=== PATIENT | male | born 1970 | race Caucasian/White ===

== ENCOUNTER 2020-02-07 11:19 | Emergency (ER) | payer MEDICAID, OTHER ==
[~2020-02-07] VITALS: Ht 180.3 cm; Wt 114.0 kg
[~2020-02-07 11:19] MED LIST: ASPI-630 PO; ATOR40TA59 PO; CYCL-331 PO; LISI1TAB37 PO; MELO15TA23 PO; POTA10TA12 PO; flexeril
--- NOTE | 2020-02-07 11:44 | PHYS DOC ---
Past History Past Medical History: Hypertension Past Surgical History: Other Smoking: Cigarettes Alcohol Use: None Drug Use: None General Adult EDM: Chief Complaint: HYPERTENSION HPI: HPI: History obtained from the patient. Patient is a 49-year-old male with a history of hypertension, COPD who presents with a chief complaint of lightheadedness, dizziness, nausea. Patient states after he arrived home after going to [facility] he began feeling somewhat lightheaded. He states he also felt the room was spinning temporarily. He also noted some associated nausea. He states he checked his blood pressure noted a systolic blood pressure of 160. He states he waited 30 minutes rechecked it and noted a systolic blood pressure 170. He spoke with his primary care physician, rechecked his blood pressure third time noted to be 185. He was instructed report to the emergency department. States he does take diltiazem and lisinopril daily. He states he takes it at night however. Denies any history of coronary artery disease or invasive cardiac testing. Denies any history of [place]. Denies any chest pain currently. States he did temporarily have left shoulder pain for a few seconds that resolved spont aneously while in the waiting room. Denies any new shortness of breath. Does use oxygen in the evenings. States he can get follow-up with his primary care physician tomorrow or the following day. States he smokes 1/2 pack/day. Denies any drug use. Denies history of blood clot. Denies swelling in legs or lungs. Denies fevers or cough. Denies any exposure to coronavirus that he knows of. Denies any recent travel. Denies any exertional chest pain at baseline. Review of Systems: Review of Systems: Constitutional: Denies fever or chills Eyes: Denies change in visual acuity HENT: Denies nasal congestion or sore throat Respiratory: Denies cough or shortness of breath Cardiovascular: Positive for lightheadedness GI: Positive for nausea : Denies dysuria Musculoskeletal: Denies back pain or joint pain Integument: Denies rash Neurologic: Denies headache, focal weakness or sensory changes Endocrine: Denies polyuria or polydipsia Lymphatic: Denies swollen glands Psychiatric: Denies depression or anxiety Heart Score: HEART Score for Chest Pain: HEART Score for Chest Pain Response (Comments) Value History Slighlty/Non-Suspicious 0 ECG Normal 0 Age >45 - < 65 1 Risk Factors 1 or 2 Risk Factors 1 Troponin < Normal Limit 0 Total 2 Risk Factors: Risk Factors: DM, Current or recent (<one month) smoker, HTN, HLP, family history of CAD, obesity. Risk Scores: Score 0 - 3: 2.5% MACE over next 6 weeks - Discharge Home Score 4 - 6: 20.3% MACE over next 6 weeks - Admit for Clinical Observation Score 7 - 10: 72.7% MACE over next 6 weeks - Early Invasive Strategies Allergies: Allergies: Allergies Coded Allergies Type Severity Reaction Last Updated Verified No Known Drug Allergies 09/26/13 No Physical Exam: PE: Constitutional: Well developed, well nourished, no acute distress, non-toxic appearance. [] HENT: Normocephalic, atraumatic, bilateral external ears normal, oropharynx moist, no oral exudates, nose normal. [] Eyes: PERRLA, EOMI, conjunctiva normal, no discharge. [] Neck: Normal range of motion, no tenderness, supple, no stridor. [] Cardiovascular: Tachycardic, rhythm, no murmur [] Lungs & Thorax: Bilateral breath sounds clear to auscultation [] Abdomen: soft, no tenderness, no masses, no pulsatile masses. [] Skin: Warm, dry, no erythema, no rash. [] Back: No tenderness, no CVA tenderness. [] Extremities: No tenderness, no cyanosis, no clubbing, ROM intact, no edema. [] Neurologic: Alert and oriented X 3, normal motor function, normal sensory function, no focal deficits noted. [] Psychologic: Affect normal, judgement normal, mood normal. [] Current Patient Data: Labs: Laboratory Tests Test 02/07/20 12:05 White Blood Count 10.3 x10^3/uL Red Blood Count 6.06 x10^6/uL Hemoglobin 17.3 g/dL Hematocrit 52.8 % Mean Corpuscular Volume 87 fL Mean Corpuscular Hemoglobin 29 pg Mean Corpuscular Hemoglobin Concent 33 g/dL Red Cell Distribution Width 14.8 % Platelet Count 214 x10^3/uL Neutrophils (%) (Auto) 69 % Lymphocytes (%) (Auto) 22 % Monocytes (%) (Auto) 7 % Eosinophils (%) (Auto) 2 % Basophils (%) (Auto) 1 % Neutrophils # (Auto) 7.1 x10^3uL Lymphocytes # (Auto) 2.2 x10^3/uL Monocytes # (Auto) 0.7 x10^3/uL Eosinophils # (Auto) 0.2 x10^3/uL Basophils # (Auto) 0.1 x10^3/uL D-Dimer ([place]) 0.19 mg/L Sodium Level 137 mmol/L Potassium Level 3.4 mmol/L Chloride Level 101 mmol/L Carbon Dioxide Level 26 mmol/L Anion Gap 10 Blood Urea Nitrogen 9 mg/dL Creatinine 0.9 mg/dL Estimated GFR (Cockcroft-Gault) 89.7 Glucose Level 117 mg/dL Calcium Level 9.6 mg/dL Troponin I Quantitative < 0.017 ng/mL IM-Eua-O-Type Natriuretic Peptide 44 pg/mL Vital Signs: Laboratory Tests Test 02/07/20 12:05 White Blood Count 10.3 x10^3/uL Red Blood Count 6.06 x10^6/uL Hemoglobin 17.3 g/dL Hematocrit 52.8 % Mean Corpuscular Volume 87 fL Mean Corpuscular Hemoglobin 29 pg Mean Corpuscular Hemoglobin Concent 33 g/dL Red Cell Distribution Width 14.8 % Platelet Count 214 x10^3/uL Neutrophils (%) (Auto) 69 % Lymphocytes (%) (Auto) 22 % Monocytes (%) (Auto) 7 % Eosinophils (%) (Auto) 2 % Basophils (%) (Auto) 1 % Neutrophils # (Auto) 7.1 x10^3uL Lymphocytes # (Auto) 2.2 x10^3/uL Monocytes # (Auto) 0.7 x10^3/uL Eosinophils # (Auto) 0.2 x10^3/uL Basophils # (Auto) 0.1 x10^3/uL D-Dimer ([place]a) 0.19 mg/L Sodium Level 137 mmol/L Potassium Level 3.4 mmol/L Chloride Level 101 mmol/L Carbon Dioxide Level 26 mmol/L Anion Gap 10 Blood Urea Nitrogen 9 mg/dL Creatinine 0.9 mg/dL Estimated GFR (Cockcroft-Gault) 89.7 Glucose Level 117 mg/dL Calcium Level 9.6 mg/dL Troponin I Quantitative < 0.017 ng/mL WH-Dls-Y-Type Natriuretic Peptide 44 pg/mL EKG: EKG: [] EKG consistent with sinus tachycardia. Left axis noted. Intervals normal. No acute ischemic change appreciated. Sinus arrhythmia noted. No acute ST segment changes appreciated. Radiology/Procedures: Radiology/Procedures: [address] [address] IMAGING REPORT Signed PATIENT: JOSEPH BASILIO ACCOUNT: [id number] : 1970 LOCATION: ER AGE: 49 SEX: M EXAM STATUS: REG ER ORD. PHYSICIAN: LLOYD ARCHIBALD DO REASON: lightheaded PROCEDURE: CHEST AP ONLY CHEST AP ONLY 02/07/2020 11:35 AM INDICATION: Lightheaded COMPARISON: 12/02/2014 TECHNIQUE: Portable frontal view of the chest is provided. FINDINGS: The cardiomediastinal silhouette is within normal limits. Mild perihilar interstitial changes are noted, progressed since the prior examination. Left chest wall cardiac monitoring device is noted. There are no significant pleural effusions. There is no pulmonary vascular congestion. No pneumothorax. No suspicious osseous abnormality. Spinal epidural leads are noted. IMPRESSION: Increased perihilar interstitial changes may represent interstitial pneumonitis versus developing interstitial edema. Electronically signed by: Dav Botello MD (02/07/2020 11:52 AM) [facility] DICTATED AND SIGNED BY: DAV BOTELLO MD DATE: 02/07/20 115 CC: GINNY GILL MD; LLOYD ARCHIBALD DO ~ [] Course & Med Decision Making: Course & Med Decision Making Pertinent Labs and Imaging studies reviewed. (See chart for details) [] Patient is a well-appearing 49-year-old male who presents with chief complaint of elevated blood pressure associated with lightheadedness. Denies any chest pain or new shortness of breath. EKG without acute ischemic changes. D-dimer was obtained given his mild tachycardia and this was negative. Overall I do estimate him to be a low risk Wells criteria patient therefore CT PE study will be deferred. Troponin undetectable. Chest x-ray does show some hypervascular markings. Could be interstitial edema versus viral pneumonia pattern. COVID swab obtained and pending. No signs of focal bacterial infection. He has a normal oxygenation on room air and remains chest pain-free. I did discuss results of labs and imaging great detail with the patient. Overall I do have low suspicion for anginal equivalent however I did offer hospitalization for further work-up. Patient is declining stating follow-up with his primary care physician tomorrow. Encouraged him to take his antihypertensive medications as prescribed. Strict return precautions were discussed and understood. He is stable for discharge home. Dragon Disclaimer: Dragon Disclaimer: This electronic medical record was generated, in whole or in part, using a voice recognition dictation system. Departure Departure: Impression: Primary Impression: Elevated blood pressure reading Additional Impressions: Lightheadedness Nausea Disposition: 01 DC HOME SELF CARE/HOMELESS Condition: STABLE Referrals: GINNY GILL MD (PCP) Patient Instructions: Hypertension Additional Instructions: Please follow-up with your primary care physician tomorrow. LLOYD ARCHIBALD DO Feb 07, 2020 11:44
--- NOTE | 2020-02-07 11:55 | RAD ---
CHEST AP ONLY 02/07/2020 11:35 AM INDICATION: Lightheaded COMPARISON: 12/02/2014 TECHNIQUE: Portable frontal view of the chest is provided. FINDINGS: The cardiomediastinal silhouette is within normal limits. Mild perihilar interstitial changes are noted, progressed since the prior examination. Left chest wall cardiac monitoring device is noted. There are no significant pleural effusions. There is no pulmonary vascular congestion. No pneumothorax. No suspicious osseous abnormality. Spinal epidural leads are noted. IMPRESSION: Increased perihilar interstitial changes may represent interstitial pneumonitis versus developing interstitial edema. Electronically signed by: Margaret Figueroa MD (02/07/2020 11:52 AM) [facility]
--- NOTE | 2020-02-07 12:24 | EKG ---
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
[2020-02-07 12:28] LABS: BASO # 0.1 x10^3/uL (0.0-0.2); BASO % 1 % (0-3); EOS # 0.2 x10^3/uL (0.0-0.7); EOS % 2 % (0-3); HEMATOCRIT 52.8 % (39.0-53.0); HEMOGLOBIN 17.3 g/dL (13.0-17.5); LYMPH # 2.2 x10^3/uL (1.0-4.8); LYMPH % 22 % (24-48); MEAN CORPUSCULAR HEMOGLOBIN 29 pg (25-35); MEAN CORPUSCULAR HGB CONC 33 g/dL (31-37); MEAN CORPUSCULAR VOLUME 87 fL (79-100); MONO # 0.7 x10^3/uL (0.0-1.1); MONO % 7 % (0-9); NEUT # 7.1 x10^3uL (1.8-7.7); NEUT % 69 % (31-73); PLATELET COUNT 214 x10^3/uL (140-400); RED BLOOD COUNT 6.06 x10^6/uL (4.30-5.70); RED CELL DISTRIBUTION WIDTH 14.8 % (11.5-14.5); WHITE BLOOD COUNT 10.3 x10^3/uL (4.0-11.0)
[2020-02-07 12:48] LABS: CALCIUM 9.6 mg/dL (8.5-10.1); CREATININE 0.9 mg/dL (0.7-1.3); GFR 89.7; POTASSIUM 3.4 mmol/L (3.5-5.1)
[2020-02-07 13:17] VITALS: BP 169/102
== END 2020-02-07 13:40 | disposition home or self-care (01) ==
LOC: ER 11:19
DX: I10 Essential (primary) hypertension (principal); R42 Dizziness and giddiness; R11.0 Nausea; F17.210 Nicotine dependence, cigarettes, uncomplicated; J44.9 Chronic obstructive pulmonary disease, unspecified; Z20.828 Contact with and (suspected) exposure to other viral communicable diseases
CPT/HCPCS: 36415; 71045; 80048; 83880; 84484; 85025; 85379; 93005; 99285; U0003

== ENCOUNTER → 2020-07-15 | Outpatient (CLI) | payer MEDICAID ==
--- NOTE | 2020-07-15 16:05 | RAD ---
CT HEAD WITHOUT CONTRAST 07/15/2020 2:05 PM Indication: Reason: R SIDED FACIAL WEAKNESS/NUMBNESS X 4 WEEKS / Spl. Instructions: / History: Comparison: None Procedure: Multidetector CT imaging of the head was performed without the administration of contrast. Findings: There is no evidence of acute intracranial hemorrhage. There is no evidence of acute territ orial infarction. Please note that CT is limited for evaluation of acute ischemia. No mass effect or midline shift is identified . The ventricles and basilar cisterns have an appropriate appearance. No abnormal extra-axial fluid collections are seen. No acute osseous changes are identified. Impression: No evidence of acute intracranial abnormality CT DOSING PQRS STATEMENT: One or more of the following individualized dose reduction techniques were utilized for this examinat ion: 1. Automated exposure control 2. Adjustment of the mA and/or kV according to patient size 3. Use of iterative reconstruction technique Electronically signed by: Artur Shook MD (07/15/2020 4:03 PM) [id number]
== END ==
LOC: CT 13:54
PROVIDERS: ATTEND Family Medicine
DX: R53.1 Weakness (principal)
CPT/HCPCS: 70450

== ENCOUNTER 2021-08-03 09:29 | Emergency (ER) | payer MEDICAID ==
[~2021-08-03] VITALS: Ht 180.3 cm; Wt 126.6 kg
[~2021-08-03 09:29] MED LIST changes: -CYCL-331 PO; +CYCL10TA19 PO
--- NOTE | 2021-08-03 09:40 | PHYS DOC ---
Past History Past Medical History: No Pertinent History Past Surgical History: No Surgical History Smoking: Cigarettes Alcohol Use: None Drug Use: None General Adult HPI: HPI: Patient is a 51-year-old male who presents here with report of chest pain, which began this morning. He reports midsternal left-sided chest pain. He describes sharp pain. The pain lasts seconds or minutes at a time. He denies associated dyspnea, pleuritic pain, cough, hemoptysis. Denies dizziness or diaphoresis. Denies abdominal pain or nausea or vomiting. He has no pain at present. He denies leg pain or swelling. No recent travel, surgery, hospitalization. He has experienced similar chest pain symptoms intermittently over the years. He does admit to some anxiety issues, which she has had previously. He reports that he had brief episodes of tingling in all of his digits of both hands. This is now resolved as well. No pain radiating to his back or flank. No syncope or near syncope. No exertional pain. The patient alludes to having some sort of heart issue related to an infection, this all occurred 15 or 16 years ago, he cannot recall any details of this, he does not know what hospital he was treated at, he does not know the nature of what ever infection he had was, I did specifically ask about endocarditis or myocarditis, and he reports that he does not know. Review of Systems: Review of Systems: Constitutional: Denies fever or chills HENT: Denies nasal congestion or sore throat Respiratory: Denies cough or shortness of breath Cardiovascular: Chest pain. No peripheral edema. No syncope or palpitations. GI: Denies abdominal pain, nausea, vomiting Musculoskeletal: Denies back pain or joint pain Integument: Denies rash Neurologic: Denies headache, focal weakness or sensory changes, denies syncope, denies dizziness Endocrine: Denies polyuria or polydipsia Lymphatic: Denies swollen glands Psychiatric: Anxiety Allergies: Allergies: Allergies Coded Allergies Type Severity Reaction Last Updated Verified No Known Drug Allergies 09/26/13 No Physical Exam: PE: Constitutional: Well developed, well nourished, no acute distress, non-toxic appearance. Mildly anxious. HENT: Normocephalic, atraumatic Eyes: PERRL, EOMI, conjunctiva normal, no discharge. [] Neck: Normal range of motion, no tenderness, supple, no stridor. Trachea is midline. No JVD. Cardiovascular:Heart rate regular rhythm, 2 radial and +2 posterior tibial pulses bilaterally. Lungs & Thorax: Lungs are clear to auscultation bilaterally without rales, rhonchi or wheezes. Equal chest rise. No cyanosis. No distress. Abdomen: Abdomen is soft, nondistended, nontender to palpation. No palpable masses organomegaly. No CVA tenderness. No palpable pulsatile mass. Skin: Warm, dry, no erythema, no rash. No diaphoresis. Back: No tenderness, no CVA tenderness. [] Extremities: No tenderness, no cyanosis, no clubbing, ROM intact, no edema. No calf tenderness. Neurologic: Alert and oriented X 3, normal motor function, normal sensory function, no focal deficits noted. Ambulatory with a steady gait. Psychologic: Mildly anxious, cooperative and pleasant. EKG: EKG: EKG is interpreted at 1005 Rhythm is sinus tachycardia Rate is 108 bpm [place] is left artifact No STEMI Radiology/Procedures: Radiology/Procedures: IMAGING REPORT Signed PATIENT: JOSEPH BASILIO ACCOUNT: [id number] : 1970 LOCATION: ER AGE: 51 SEX: M EXAM STATUS: REG ER ORD. PHYSICIAN: KIZZY NASCIMENTO DO REASON: chest pain PROCEDURE: PORTABLE CHEST 1V Exam Date: 08/03/2021 9:50 AM XR CHEST 1V Indication: Reason: chest pain / Spl. Instructions: / History: . Comparison: February 07, 2020 FINDINGS/ IMPRESSION: Mild bibasilar subsegmental atelectasis and/or scarring is noted. The cardiac silhouette and pulmonary vasculature are within normal limits. There is no focal consolidation, pleural effusion or pneumothorax. Electronically signed by: Bj Manning MD (08/03/2021 10:03 AM) [facility] DICTATED AND SIGNED BY: BJ MANNING MD DATE: 08/03/21 1001 CC: KIZZY NASCIMENTO DO; GINNY GILL MD ~ Heart Score: C/O Chest Pain: Yes HEART Score for Chest Pain: HEART Score for Chest Pain Response (Comments) Value History Moderately Suspicious 1 ECG Nonspecific Repolarizatio 1 Age >45 - < 65 1 Risk Factors 1 or 2 Risk Factors 1 Troponin < Normal Limit 0 Total 4 Risk Factors: Risk Factors: DM, Current or recent (<one month) smoker, HTN, HLP, family history of CAD, obesity. Risk Scores: Score 0 - 3: 2.5% MACE over next 6 weeks - Discharge Home Score 4 - 6: 20.3% MACE over next 6 weeks - Admit for Clinical Observation Score 7 - 10: 72.7% MACE over next 6 weeks - Early Invasive Strategies Course & Med Decision Making: Course & Med Decision Making Pertinent Labs and Imaging studies reviewed. (See chart for details) The patient reports no further pain while in the ED. He does admit that being in the ER makes him anxious, he is anxiously awaiting discharge. I had to convince him to stay for second troponin. He did wait for this. No indication of acute coronary syndrome. His mild tachycardia has resolved. I have discussed all the findings, differential diagnosis and plan of care with the patient. I recommend he follow-up with a primary care physician as well as outpatient cardiology services. He is given outpatient cardiology information. I recommend smoking cessation. Return precautions are given. He verbalizes understanding. Olivia Disclaimer: Olivia Disclaimer: This electronic medical record was generated, in whole or in part, using a voice recognition dictation system. Departure Departure: Impression: Primary Impression: Chest pain Qualified Codes: R07.9 - Chest pain, unspecified Disposition: HOME / SELF CARE / HOMELESS Condition: STABLE Referrals: GINNY GILL MD (PCP) CLAUDIA CARRASQUILLO MD Patient Instructions: Chest Pain (Nonspecific) Additional Instructions: Please return to the ER for more severe chest pain, severe shortness of breath, coughing up blood, temperature of 100.4 or higher, weakness, passing out, or any other concerns. Please follow-up with your primary care physician. I strongly recommend you also see outpatient cardiology services as well. KIZZY NASCIMENTO DO Aug 03, 2021 09:40
--- NOTE | 2021-08-03 10:06 | RAD ---
Exam Date: 08/03/2021 9:50 AM XR CHEST 1V Indication: Reason: chest pain / Spl. Instructions: / History: . Comparison: February 07, 2020 FINDINGS/ IMPRESSION: Mild bibasilar subsegmental atelectasis and/or scarring is noted. The cardiac silhouette and pulmonary vasculature are within normal limits. There is no focal consolidation, pleural effusion or pneumothorax. Electronically signed by: Antonio Manning MD (08/03/2021 10:03 AM) [facility]
[2021-08-03 10:31] LABS: BASO # 0.1 x10^3/uL (0.0-0.2); BASO % 1 % (0-3); EOS # 0.2 x10^3/uL (0.0-0.7); EOS % 2 % (0-3); HEMATOCRIT 52.8 % (39.0-53.0); HEMOGLOBIN 17.6 g/dL (13.0-17.5); LYMPH # 2.1 x10^3/uL (1.0-4.8); LYMPH % 19 % (24-48); MEAN CORPUSCULAR HEMOGLOBIN 29 pg (25-35); MEAN CORPUSCULAR HGB CONC 33 g/dL (31-37); MEAN CORPUSCULAR VOLUME 87 fL (79-100); MONO # 0.9 x10^3/uL (0.0-1.1); MONO % 8 % (0-9); NEUT # 8.2 x10^3uL (1.8-7.7); NEUT % 71 % (31-73); PLATELET COUNT 214 x10^3/uL (140-400); RED BLOOD COUNT 6.08 x10^6/uL (4.30-5.70); RED CELL DISTRIBUTION WIDTH 15.3 % (11.5-14.5); WHITE BLOOD COUNT 11.5 x10^3/uL (4.0-11.0)
[2021-08-03 10:41] LABS: CALCIUM 9.3 mg/dL (8.5-10.1); CREATININE 0.9 mg/dL (0.7-1.3); POTASSIUM 3.4 mmol/L (3.5-5.1)
[2021-08-03 10:54] LABS: ALBUMIN 3.3 g/dL (3.4-5.0); MAGNESIUM 1.6 mg/dL (1.8-2.4); TOTAL BILIRUBIN 0.5 mg/dL (0.2-1.0); TOTAL PROTEIN 6.5 g/dL (6.4-8.2)
[2021-08-03 11:22] LABS: INFLUENZA A PATIENT NEGATIVE (NEGATIVE); INFLUENZA B PATIENT NEGATIVE (NEGATIVE)
[2021-08-03 11:35] LABS: BACTERIA,URINE 0 /HPF (0-FEW); CLARITY,URINE CLEAR; COLOR,URINE YELLOW; GLUCOSE,URINE NEG (NEG); NITRITE,URINE NEG (NEG); SQUAMOUS EPITHELIAL CELL,UR MOD /LPF; UROBILINOGEN,URINE 0.2 mg/dL (0.2 mg/dL)
[2021-08-03 13:59] VITALS: BP 132/77
--- NOTE | 2021-08-04 06:41 | EKG ---
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
== END 2021-08-03 13:47 | disposition home or self-care (01) ==
LOC: ER 09:29
DX: R07.89 Other chest pain (principal); F41.9 Anxiety disorder, unspecified; F17.210 Nicotine dependence, cigarettes, uncomplicated; Z20.822 Contact with and (suspected) exposure to COVID-19
CPT/HCPCS: 36415; 71045; 80053; 81001; 83690; 83735; 83880; 84484; 85025; 87428; 93005; 99285

== ENCOUNTER 2021-09-21 11:17 | Emergency (ER) | payer MEDICAID ==
[~2021-09-21] VITALS: Ht 180.3 cm; Wt 127.0 kg
--- NOTE | 2021-09-21 12:10 | PHYS DOC ---
Past History Past Medical History: No Pertinent History Additional Past Medical Histor: CHronic back pain/nerve damage Past Surgical History: Lumbar Laminectomy Additional Past Surgical Histo: SPINAL CORD STIMULATOR, LOOP RECORDER Smoking: Cigarettes Alcohol Use: None Drug Use: None Social History Narrative: THC gummies for back pain General Adult EDM: Chief Complaint: CHEST PAIN HPI: HPI: Patient is a 51-year-old male coming in for left-sided chest pain that he describes as dull with occasional sharp twinges. Patient states that he had a little bit of a dull ache when he went to bed last night but says he woke up at 3 AM with worsening pain, patient attributed to his anxiety and went back to sleep. Says it will come again around 830 or 9 AM. Patient states is a 6 out of 10 now. Patient is a history of anxiety and has had multiple recent stressors in the home. Patient has a history of "heart attack due to a bacterial infection" and does not have any stents. He also has some nausea, no vomiting. Denies diaphoresis, lightheadedness Review of Systems: Review of Systems: All other systems within normal limits except for as noted in the HPI Allergies: Allergies: Allergies Coded Allergies Type Severity Reaction Last Updated Verified bupropion Allergy Unknown 09/21/21 Yes Physical Exam: PE: Constitutional: Well developed, well nourished, no acute distress, non-toxic [place] earance. [] HENT: Normocephalic, atraumatic, bilateral external ears normal, nose normal. [] Eyes: PERRLA, conjunctiva normal, no discharge. [] Neck: No rigidity, supple, no stridor. [] Cardiovascular: Tachycardia, regular rhythm, brisk cap refill [] Lungs & Thorax: Non labored symmetric respirations, no tachypnea or respiratory distress. Lungs clear [] Abdomen: Soft, nondistended. Skin: Warm, dry, no erythema, no rash. [] Back: Unremarkable Extremities: No deformities, range of motion grossly intact, no lower extremity edema [] Neurologic: Alert and oriented X 3, no focal deficits noted. [] Psychologic: Affect normal, judgement normal, mood normal. [] Current Patient Data: Vital Signs: Vital Signs Date Time Temp Pulse Resp B/P (MAP) Pulse Ox O2 Delivery O2 Flow Rate FiO2 09/21/21 11:20 98.2 56 18 174/112 (840) 98 Room Air EKG: EKG: Sinus tachycardia, heart rate 103 bpm, borderline left axis deviation, no STEMI. [] Radiology/Procedures: Radiology/Procedures: [address] [address] IMAGING REPORT Signed PATIENT: JOSEPH BASILIO ACCOUNT: [id number] : 1970 LOCATION: ER AGE: 51 SEX: M EXAM STATUS: REG ER ORD. PHYSICIAN: DILEEP MARIANO MD REASON: pain PROCEDURE: PORTABLE CHEST 1V Single view of the chest. 09/21/2021 12:27 PM Indication: Chest pain Comparison: Chest radiograph August 03, 2021 Findings: Basilar predominant interstitial coarsening is similar to comparison exam. No pneumothorax or pleural effusion is identified. Heart is mildly enlarged. Dorsal column stimulator noted. Cardiac monitoring device projects over the left heart. No acute osseous changes are identified. IMPRESSION: Basilar predominant diffuse interstitial coarsening, similar to comparison exam Electronically signed by: Artur Vázquez MD (09/21/2021 12:31 PM) [id number] DICTATED AND SIGNED BY: ARTUR VÁZQUEZ MD DATE: 09/21/21 1229 CC: DILEEP MARIANO MD; GINNY GILL MD ~ [] Heart Score: C/O Chest Pain: Yes HEART Score for Chest Pain: HEART Score for Chest Pain Response (Comments) Value History Moderately Suspicious 1 ECG Normal 0 Age >45 - < 65 1 Risk Factors >3 Risk Factors or Hx CAD 2 Troponin < Normal Limit 0 Total 4 Risk Factors: Risk Factors: DM, Current or recent (<one month) smoker, HTN, HLP, family history of CAD, obesity. Risk Scores: Score 0 - 3: 2.5% MACE over next 6 weeks - Discharge Home Score 4 - 6: 20.3% MACE over next 6 weeks - Admit for Clinical Observation Score 7 - 10: 72.7% MACE over next 6 weeks - Early Invasive Strategies Course & Med Decision Making: Course & Med Decision Making Pertinent Labs and Imaging studies reviewed. (See chart for details) Patient's pain resolved, states that it already started going down before he got to the emergency department. Patient described the pain as sharp and pleuritic. Offered admission for further observation for chest pain due to a heart score of 4. Patient declines and states that he would rather follow-up with his primary care provider does not want to be admitted to the hospital or transferred. [] Dragon Disclaimer: Dragon Disclaimer: This electronic medical record was generated, in whole or in part, using a voice recognition dictation system. Departure Departure: Impression: Primary Impression: Chest pain Additional Impression: Elevated blood pressure reading Disposition: HOME / SELF CARE / HOMELESS Condition: STABLE Referrals: GINNY GILL MD (PCP) Patient Instructions: Chest Pain (Nonspecific) DILEEP MARIANO MD September 21, 2021 12:10
[2021-09-21] MEDS ORDERED: IV RINGERS SOLUTION,LACTATED 1,000 ML IV SCH (12:15)
[2021-09-21] MEDS ORDERED: ASPIRIN CHEWABLE 81 MG TABLET. PO ONE (12:15)
[2021-09-21 12:25] LABS: BASO # 0.1 x10^3/uL (0.0-0.2); BASO % 1 % (0-3); EOS # 0.3 x10^3/uL (0.0-0.7); EOS % 3 % (0-3); HEMATOCRIT 53.2 % (39.0-53.0); LYMPH # 2.4 x10^3/uL (1.0-4.8); LYMPH % 24 % (24-48); MEAN CORPUSCULAR HEMOGLOBIN 29 pg (25-35); MEAN CORPUSCULAR HGB CONC 34 g/dL (31-37); MEAN CORPUSCULAR VOLUME 87 fL (79-100); MONO # 0.7 x10^3/uL (0.0-1.1); MONO % 7 % (0-9); NEUT # 6.5 x10^3uL (1.8-7.7); NEUT % 65 % (31-73); PLATELET COUNT 215 x10^3/uL (140-400); RED BLOOD COUNT 6.13 x10^6/uL (4.30-5.70)
[2021-09-21 12:32] LABS: CREATININE 0.9 mg/dL (0.7-1.3); POTASSIUM 4.3 mmol/L (3.5-5.1)
--- NOTE | 2021-09-21 12:33 | RAD ---
Single view of the chest. 09/21/2021 12:27 PM Indication: Chest pain Comparison: Chest radiograph August 03, 2021 Findings: Basilar predominant interstitial coarsening is similar to comparison exam. No pneumothorax or pleural effusion is identified. Heart is mildly enlarged. Dorsal column stimulator noted. Cardiac monitoring device projects over the left heart. No acute osseous changes are identified. IMPRESSION: Basilar predominant diffuse interstitial coarsening, similar to comparison exam Electronically signed by: Artur Shook MD (09/21/2021 12:31 PM) [id number]
[2021-09-21 12:37] LABS: AMPHETAMINE/METHAMPHETAMINE NEG (NEG); BARBITURATES NEG (NEG); BENZODIAZEPINES NEG (NEG); CANNABINOIDS NEG (NEG); COCAINE NEG (NEG); METHADONE NEG (NEG); OPIATES NEG (NEG); PHENCYCLIDINE NEG (NEG)
[2021-09-21 12:44] LABS: ALBUMIN 3.4 g/dL (3.4-5.0); TOTAL BILIRUBIN 0.4 mg/dL (0.2-1.0); TOTAL PROTEIN 6.8 g/dL (6.4-8.2)
[2021-09-21 12:45] LABS: BACTERIA,URINE 0 /HPF (0-FEW); CLARITY,URINE CLEAR; COLOR,URINE YELLOW; GLUCOSE,URINE NEG (NEG); NITRITE,URINE NEG (NEG); RBC,URINE OCC /HPF (0-2); SQUAMOUS EPITHELIAL CELL,UR FEW /LPF; UROBILINOGEN,URINE 0.2 mg/dL (0.2 mg/dL); WBC,URINE 0 /HPF (0-4)
[2021-09-21] MEDS: NITROGLYCERIN SUBLINGUAL 0.4 MG BOTTLE OF 25. SL PRN ×2 (13:30→13:38)
[2021-09-21 16:01] VITALS: BP 155/109
== END 2021-09-21 16:02 | disposition home or self-care (01) ==
LOC: ER 11:17
DX: R07.89 Other chest pain (principal); R03.0 Elevated blood-pressure reading, without diagnosis of hypertension; G89.29 Other chronic pain; F17.210 Nicotine dependence, cigarettes, uncomplicated; Z88.8 Allergy status to other drugs, medicaments and biological substances
CPT/HCPCS: 36415; 71045; 80053; 80307; 81001; 83690; 83735; 83880; 84484; 85025; 85379; 85610; 93005; 96361; 96374; 99285; J2060; J7120